=== PATIENT | male | born 1985 | race Caucasian/White ===

== ENCOUNTER 2019-03-03 18:00 | Emergency (ER) | payer BC ==
[2019-03-03] MEDS ORDERED: Ondansetron 4 MG/2 ML SDV IVPUSH ONE (18:41)
[2019-03-03] MEDS ORDERED: Morphine 4 MG/ML Syringe IVPUSH ONE ×2 (18:41→20:49)
[2019-03-03] MEDS ORDERED: Sodium Chloride 0.9% 1,000 ML IV ONE (18:41)
--- NOTE | 2019-03-03 18:45 | EDM.PDOC ---
ED HPI GENERAL MEDICAL PROBLEM - General Chief Complaint: General Stated Complaint: LANCED Time Seen by Provider: 03/03/19 18:17 Source of Information: Reports: Patient History Limitations: Reports: No Limitations - History of Present Illness INITIAL COMMENTS - FREE TEXT/NARRATIVE: HISTORY AND PHYSICAL: History of present illness: Patient is a 33-year-old male who presents to the emergency room with complaints of an abscess to the perineum. He states he does have a history of abscesses, states "I can usually get to them myself and drain them" - but due to location he was unable to get to the area. Patient denies any fever, chills, headache, change in vision, syncope or near syncope. Denies any chest pain, back pain, shortness of breath or cough. Denies any abdominal pain, nausea, vomiting, diarrhea, constipation or dysuria. Denies any testicular redness, swelling or pain. Denies any rectal pain, pressure or discomfort. Has not noted any blood in urine or stool. Patient has been eating and drinking appropriately. Review of systems: As per history of present illness and below otherwise all systems reviewed and negative. Past medical history: As per history of present illness and as reviewed below otherwise noncontributory. Surgical history: As per history of present illness and as reviewed below otherwise noncontributory. Social history: See social history for further information Family history: As per history of present illness and as reviewed below otherwise noncontributory. Physical exam: General: Well-developed and well-nourished 33-year-old male. Alert and oriented. Nontoxic appearing and in no acute distress. HEENT: Atraumatic, normocephalic, pupils equal and reactive bilaterally, negative for conjunctival pallor or scleral icterus, mucous membranes moist, TMs normal bilaterally, throat clear, neck supple, nontender, trachea midline. No drooling or trismus noted. No meningeal signs. No hot potato voice noted. Lungs: Clear to auscultation, breath sounds equal bilaterally, chest nontender. Heart: S1S2, regular rate and rhythm without overt murmur Abdomen: Soft, nondistended, nontender. Negative for masses or hepatosplenomegaly. Negative for costovertebral tenderness. Pelvis: Stable nontender. Genitourinary: Deferred. Rectal: This was done with consent and a facilities administrator at the bedside. See skin for details. Skin: Patient has a localized area to the perineum below the scrotum which is approximately the size of a nickel. This area is erythematous firm but fluctuant center. No surrounding erythema. This does not appear to track into the rectum. Otherwise skin is intact, warm, dry. No lesions or rashes noted. Extremities: Atraumatic, moves all extremities per self with difficulty or deficits, negative for cords or calf pain. Neurovascular unremarkable. Neuro: Awake, alert, oriented. Cranial nerves II through XII unremarkable. Cerebellum unremarkable. Motor and sensory unremarkable throughout. Exam nonfocal. Notes: CT shows no localized fluid collection. No acute inflammatory process within the abdomen or pelvis. Lab work is unremarkable. It did share this information with the patient. He states he still would like to attempt the I&D. 1% lidocaine was used to anesthetize the area. An 11 blade was used to puncture the site. Moderate amount of purulent drainage was expressed from the area. Patient states he feels much relief. We discussed the need for follow-up with the general surgeon for reevaluation and care. We'll place him Bactrim DS and give him [employer] for pain relief. Supportive care measures were reviewed and discussed. Voices understanding and is agreeable to plan of care. Denies any further questions or concerns at this time. Diagnostics: CBC, CMP, CT abdomen and pelvis Therapeutics: IV fluids, Zofran, Morphine Prescription: Bactrim DS [employer] (#20) Impression: Abscess Plan: 1. Apply gentle heat to the area. Warm sits baths as we discussed. 2. Take your medications as directed. The [employer] and cause drowsiness a do not take it will driving to be functioning outside of the house. 3. Please follow-up with the general surgeon as we discussed. Return to the ED as needed and as discussed. Definitive disposition and diagnosis as appropriate pending reevaluation and review of above. анна-anal Pain Score (Numeric/FACES): 9 - Related Data Allergies Allergy/AdvReac Type Severity Reaction Status Date / Time No Known Allergies Allergy Verified 01/08/15 10:41 Home Meds: Home Meds . [No Known Home Meds] 01/08/15 [History] ED ROS GENERAL - Review of Systems Review Of Systems: ROS reveals no pertinent complaints other than HPI. ED EXAM, GENERAL - Physical Exam Exam: See Below (See dictation) Course - Vital Signs Last Recorded V/S: Last Vital Signs Temp 97.5 F 03/03/19 18:30 Pulse 87 03/03/19 21:15 Resp 18 03/03/19 21:15 BP 150/100 H 03/03/19 21:15 Pulse Ox 94 L 03/03/19 21:15 - Orders/Labs/Meds Orders: Active Orders 24 hr Category Date Time Status CULTURE WOUND [RM] Stat Lab 03/03/19 21:10 Ordered Labs: Laboratory Tests 03/03/19 03/03/19 Range/Units 18:57 18:57 WBC 10.37 (4.0-11.0) K/uL RBC 4.86 (4.50-5.90) M/uL Hgb 15.5 (13.0-17.0) g/dL Hct 45.5 (38.0-50.0) % MCV 93.6 (80.0-98.0) fL MCH 31.9 (27.0-32.0) pg MCHC 34.1 (31.0-37.0) g/dL RDW Std Deviation 46.6 (28.0-62.0) fl RDW Coeff of [place] 14 (11.0-15.0) % Plt Count 258 (150-400) K/uL MPV 9.30 (7.40-12.00) fL Neut % (Auto) 57.0 (48.0-80.0) % Lymph % (Auto) 34.3 (16.0-40.0) % [place] % (Auto) 6.3 (0.0-15.0) % Eos % (Auto) 2.0 (0.0-7.0) % Baso % (Auto) 0.4 (0.0-1.5) % Neut # (Auto) 5.9 H (1.4-5.7) K/uL Lymph # (Auto) 3.6 H (0.6-2.4) K/uL [place] # (Auto) 0.7 (0.0-0.8) K/uL Eos # (Auto) 0.2 (0.0-0.7) K/uL Baso # (Auto) 0.0 (0.0-0.1) K/uL Nucleated RBC % 0.0 /100WBC Nucleated RBCs # 0 K/uL Sodium 142 (136-148) mmol/L Potassium 4.3 (3.5-5.1) mmol/L Chloride 106 (98-107) mmol/L Carbon Dioxide 23.7 (21.0-32.0) mmol/L BUN 11 (7.0-18.0) mg/dL Creatinine 1.0 (0.8-1.3) mg/dL Est Cr Clr Drug Dosing 122.16 mL/min Estimated GFR (MDRD) > 60.0 ml/min Glucose 105 (74-106) mg/dL Calcium 9.3 (8.5-10.1) mg/dL Total Bilirubin 0.4 (0.2-1.0) mg/dL AST 21 (15-37) IU/L ALT 54 (14-63) IU/L Alkaline Phosphatase 85 (46-116) U/L Total Protein 7.7 (6.4-8.2) g/dL Albumin 3.8 (3.4-5.0) g/dL Globulin 3.9 (2.6-4.0) g/dL Albumin/Globulin Ratio 1.0 (0.9-1.6) Meds: Medications Discontinued Medications Generic Name Dose Route Start Last Admin Trade Name Freq PRN Reason Stop Dose Admin Sodium Chloride 1,000 mls @ 999 mls/hr 03/03/19 18:41 03/03/19 18:56 Normal Saline IV 03/03/19 19:41 999 mls/hr STAT ONE Administration Iopamidol 100 ml 03/03/19 20:03 03/03/19 20:04 Isovue Multipack-370 (76%) IVPUSH 03/03/19 20:04 100 ml ONETIME ONE Administration Lidocaine HCl 5 ml 03/03/19 19:33 03/03/19 21:01 Xylocaine-Mpf 1% INJECT 03/03/19 19:34 5 ml ONETIME ONE Administration Morphine Sulfate 4 mg 03/03/19 18:41 03/03/19 18:59 Morphine IVPUSH 03/03/19 18:42 4 mg ONETIME ONE Administration Morphine Sulfate 4 mg 03/03/19 20:49 03/03/19 21:04 Morphine IVPUSH 03/03/19 20:50 4 mg ONETIME ONE Administration Ondansetron HCl 4 mg 04/22/19 18:41 03/03/19 18:58 Zofran IVPUSH 03/03/19 18:42 4 mg ONETIME ONE Administration Departure - Departure Time of Disposition: 20:58 Disposition: Home, Self-Care 01 Clinical Impression: Abscess - Discharge Information Instructions: Skin Abscess, [id number] Referrals: PCP,None [Primary Care Provider] - Forms: ED Department Discharge Additional Instructions: The following information is given to patients seen in the emergency department who are being discharged to home. This information is to outline your options for follow-up care. We provide all patients seen in our emergency department with a follow-up referral. The need for follow-up, as well as the timing and circumstances, are variable depending upon the specifics of your emergency department visit. If you don't have a primary care physician on staff, we will provide you with a referral. We always advise you to contact your personal physician following an emergency department visit to inform them of the circumstance of the visit and for follow-up with them and/or the need for any referrals to a consulting specialist. The emergency department will also refer you to a specialist when appropriate. This referral assures that you have the opportunity for follow-up care with a specialist. All of these measure are taken in an effort to provide you with optimal care, which includes your follow-up. Under all circumstances we always encourage you to contact your private physician who remains a resource for coordinating your care. When calling for follow-up care, please make the office aware that this follow-up is from your recent emergency room visit. If for any reason you are refused follow-up, please contact the [facility] Emergency Department at and asked to speak to the emergency department charge nurse. [facility] Specialty Care - General Surgery Professional Building [address] [place] [address], [address] [place] [address] 1. Apply gentle heat to the area. Warm sits baths as we discussed. 2. Take your medications as directed. The [employer] and cause drowsiness a do not take it will driving to be functioning outside of the house. 3. Please follow-up with the general surgeon as we discussed. Return to the ED as needed and as discussed. - My Orders Last 24 Hours: My Active Orders 03/03/19 21:10 CULTURE WOUND [RM] Stat - Assessment/Plan Last 24 Hours: My Active Orders 03/03/19 21:10 CULTURE WOUND [RM] Stat
[2019-03-03 19:24] LABS: CHLORIDE,CL 106 mmol/L (98-107); SODIUM,NA 142 mmol/L (136-148)
[2019-03-03] MEDS ORDERED: Iopamidol 755 MG/ML 500 ML Multipack Bottle IVPUSH ONE (20:03)
--- NOTE | 2019-03-03 20:37 | CT ---
HISTORY: Perianal abscess. TECHNIQUE: Intravenous contrast enhanced CT of the abdomen and pelvis. 100 mL of Isovue-370 intravenous contrast administered. COMPARISON: No prior. FINDINGS: There is no focal liver parenchymal abnormality. Prior cholecystectomy. Biliary system is within normal limits for postcholecystectomy state. Spleen and adrenal glands are normal. Symmetric nephrograms. No renal mass or hydronephrosis. Urinary bladder is not evaluated by CT but appears grossly unremarkable. - Stomach and GE junction are not optimally distended and not optimally evaluated by CT but appear grossly unremarkable. There is no small bowel obstruction. No appendicitis. No diverticulitis or definite colitis. No perirectal or perianal collection seen. No deep pelvic or abdominal fluid collection. No adenopathy. No aortic aneurysm. Small fat containing umbilical region hernia is present. - There is bilateral femoral head avascular necrosis without collapse of the articular surfaces. - No consolidation within the lung bases nor pleural effusion. IMPRESSION: 1. No localized fluid collection seen. 2. No acute inflammatory process seen within the abdomen or pelvis. 3. Changes of prior cholecystectomy. Biliary system within normal limits for postcholecystectomy state. 4. Small fat containing umbilical hernia. 5. Bilateral femoral head avascular necrosis. No collapse of the articular surfaces. Dictated by Chad Alfaro MD @ 03/03/2019 8:35:35 PM Please note that all CT scans at this facility use dose modulation, iterative reconstruction, and/or weight-based dosing when appropriate to reduce radiation dose to as low as reasonably achievable. Dictated by: Chad Alfaro MD @ 03/03/2019 20:35:41 (Electronically Signed)
[2019-03-03 21:19] VITALS: BP 150/100
== END 2019-03-03 21:15 | disposition home or self-care (01) ==
LOC: MW.ED 18:00
DX: L02.215 Cutaneous abscess of perineum (principal)
CPT/HCPCS: 10060; 74177; 80053; 85025; 87070; 96361; 96374; 96375; 96376; 99284; J2001; J2270; J2405; J7040; Q9967

== ENCOUNTER 2019-04-22 08:53 | Emergency (ER) | payer BC ==
--- NOTE | 2019-04-22 09:17 | EDM.PDOC ---
ED HPI GENERAL MEDICAL PROBLEM - General Chief Complaint: Skin Complaint Stated Complaint: ABCESS Time Seen by Provider: 04/22/19 08:59 Source of Information: Reports: Patient History Limitations: Reports: No Limitations - History of Present Illness INITIAL COMMENTS - FREE TEXT/NARRATIVE: History of present illness: []Patient has had a perineal abscess 2 months ago that was drained in the ER and feels that it has returned. He came in earlier this time has no fevers, pain with bowel movements or redness/tenderness to scrotum. Review of systems: As per history of present illness and below otherwise all systems reviewed and negative. Past medical history: As per history of present illness and as reviewed below otherwise noncontributory. Surgical history: As per history of present illness and as reviewed below otherwise noncontributory. Social history: No reported history of drug or alcohol abuse. Family history: As per history of present illness and as reviewed below otherwise noncontributory. Physical exam: General: Well developed, well nourished in NAD HEENT: Atraumatic, normocephalic, pupils reactive, negative for conjunctival pallor or scleral icterus, mucous membranes moist, throat clear, neck supple, nontender, trachea midline. Lungs: Clear to auscultation, breath sounds equal bilaterally, chest nontender. Heart: S1S2, regular, negative for clicks, rubs, or JVD. Abdomen: NABS, Soft, nondistended, nontender. Negative for masses or hepatosplenomegaly. Negative for costovertebral tenderness. Pelvis: Stable nontender. Genitourinary: Perineal area with a healed scar, tenderness to palpation with small pea-sized area of fluctuant, there is no erythema, swelling or edema to the area or surrounding tissue. Rectal: Deferred. Extremities: Atraumatic, negative for cords or calf pain. Neurovascular unremarkable. Neuro: Awake, alert, oriented. Cranial nerves II through XII unremarkable. Cerebellum unremarkable. Motor and sensory unremarkable throughout. Exam nonfocal. Skin:warm and dry Diagnostics: None Therapeutics: Dilaudid IM in the ED ED Course: Consults Dr. Guillaume who evaluated him in the ER will see him in clinic tomorrow Impression: Perineal abscess Prescriptions: Tramadol, Flagyl Plan: She will be discharged on Flagyl and tramadol, follow-up with Dr. Guillaume in clinic tomorrow Definitive disposition and diagnosis as appropriate pending reevaluation and review of above. Perineum Pain Score (Numeric/FACES): 8 - Related Data Allergies Allergy/AdvReac Type Severity Reaction Status Date / Time No Known Allergies Allergy Verified 04/22/19 09:02 Home Meds: Home Meds metroNIDAZOLE [Flagyl] 500 mg PO Q8H #30 tab 04/22/19 [Rx] traMADol HCl [Tramadol HCl] 50 mg PO Q6H PRN #20 tablet 04/22/19 [Rx] Past Medical History - Past Health History Medical/Surgical History: Denies Medical/Surgical History HEENT History: Reports: None Cardiovascular History: Reports: Hypertension Respiratory History: Reports: None Gastrointestinal History: Reports: None Genitourinary History: Reports: None Musculoskeletal History: Reports: None Neurological History: Reports: None Psychiatric History: Reports: None Endocrine/Metabolic History: Reports: None Hematologic History: Reports: None Immunologic History: Reports: None Oncologic (Cancer) History: Reports: None Dermatologic History: Reports: None - Infectious Disease History Infectious Disease History: Reports: MRSA - Past Surgical History Head Surgeries/Procedures: Reports: None HEENT Surgical History: Reports: None Cardiovascular Surgical History: Reports: None Respiratory Surgical History: Reports: None GI Surgical History: Reports: Cholecystectomy, Other (See Below) Other GI Surgeries/Procedures: fissure (rectal) Male Surgical History: Reports: None Endocrine Surgical History: Reports: None Neurological Surgical History: Reports: None Musculoskeletal Surgical History: Reports: None Oncologic Surgical History: Reports: None Dermatological Surgical History: Reports: None Social & Family History - Family History Family Medical History: Noncontributory - Tobacco Use Smoking Status *Q: Current Every Day Smoker Years of Tobacco use: 20 Packs/Tins Daily: 1 - Caffeine Use Caffeine Use: Reports: None - Recreational Drug Use Recreational Drug Use: Yes Recreational Drug Type: Reports: Marijuana/Hashish ED ROS GENERAL - Review of Systems Review Of Systems: ROS reveals no pertinent complaints other than HPI. ED EXAM, SKIN/RASH Exam: See Below (See history of present illness) Course - Vital Signs Last Recorded V/S: Last Vital Signs Temp 96.1 F 04/22/19 09:00 Pulse 75 04/22/19 09:53 Resp 18 04/22/19 09:00 BP 156/101 H 04/22/19 09:53 Pulse Ox 97 06/11/19 09:53 - Orders/Labs/Meds Meds: Medications Discontinued Medications Generic Name Dose Route Start Last Admin Trade Name Freq PRN Reason Stop Dose Admin Hydromorphone HCl 1 mg 04/22/19 09:18 04/22/19 09:28 Dilaudid IM 04/22/19 09:19 1 mg ONETIME ONE Administration Departure - Departure Time of Disposition: 09:54 Disposition: Home, Self-Care 01 Condition: Good Clinical Impression: Perineal abscess Clinical Impression: (Ruled Out): Perineal abscess, superficial - Discharge Information *PRESCRIPTION DRUG MONITORING PROGRAM REVIEWED*: No *COPY OF PRESCRIPTION DRUG MONITORING REPORT IN PATIENT FABRICIO: No Prescriptions: metroNIDAZOLE [Flagyl] 500 mg PO Q8H #30 tab traMADol HCl [Tramadol HCl] 50 mg PO Q6H PRN #20 tablet PRN Reason: Pain Referrals: PCP,None [Primary Care Provider] - Forms: ED Department Discharge Additional Instructions: The following information is given to patients seen in the emergency department who are being discharged to home. This information is to outline your options for follow-up care. We provide all patients seen in our emergency department with a follow-up referral. The need for follow-up, as well as the timing and circumstances, are variable depending upon the specifics of your emergency department visit. If you don't have a primary care physician on staff, we will provide you with a referral. We always advise you to contact your personal physician following an emergency department visit to inform them of the circumstance of the visit and for follow-up with them and/or the need for any referrals to a consulting specialist. The emergency department will also refer you to a specialist when appropriate. This referral assures that you have the opportunity for follow-up care with a specialist. All of these measure are taken in an effort to provide you with optimal care, which includes your follow-up. Under all circumstances we always encourage you to contact your private physician who remains a resource for coordinating your care. When calling for follow-up care, please make the office aware that this follow-up is from your recent emergency room visit. If for any reason you are refused follow-up, please contact the [facility] Emergency Department at and asked to speak to the emergency department charge nurse. Take meds as directed, follow up with your primary care physician, return to ER if symptoms worsen or change. [facility] Specialty Care - General Surgery Professional Building [address] [place] [address], [address] [place] [address]
[2019-04-22] MEDS ORDERED: HYDROmorphone 1 MG/ML Syringe IM ONE (09:18)
[2019-04-22 09:54] VITALS: BP 156/101
--- NOTE | 2019-04-22 10:10 | PCM.CONS ---
H&P History of Present Illness - General Date of Service: 04/22/19 Admit Problem/Dx: Perianal pain Source of Information: Patient History Limitations: Reports: No Limitations - History of Present Illness Initial Comments - Free Text/Narative: Patient is a 33 year old male with a history of perianal abscesses and a previous fistula. He had an anterior perianal abscess a couple months ago. He came to the ER and had it drained bedside. He healed up with no complications. Two days ago he felt some pain and pressure in the same area. It is now warm and slightly raised. He denies fevers chills or change in his bowel or bladder habits. He has had a colonoscopy which was normal. Perineum Pain Score (Numeric/FACES): 8 - Related Data Allergies/Adverse Reactions: Allergies Allergy/AdvReac Type Severity Reaction Status Date / Time No Known Allergies Allergy Verified 04/22/19 09:02 Home Medications: Home Meds metroNIDAZOLE [Flagyl] 500 mg PO Q8H #30 tab 04/22/19 [Rx] traMADol HCl [Tramadol HCl] 50 mg PO Q6H PRN #20 tablet 04/22/19 [Rx] Past Medical History - Past Health History Medical/Surgical History: Denies Medical/Surgical History HEENT History: Reports: None Cardiovascular History: Reports: Hypertension Respiratory History: Reports: None Gastrointestinal History: Reports: None Genitourinary History: Reports: None Musculoskeletal History: Reports: None Neurological History: Reports: None Psychiatric History: Reports: None Endocrine/Metabolic History: Reports: None Hematologic History: Reports: None Immunologic History: Reports: None Oncologic (Cancer) History: Reports: None Dermatologic History: Reports: None - Infectious Disease History Infectious Disease History: Reports: MRSA - Past Surgical History Head Surgeries/Procedures: Reports: None HEENT Surgical History: Reports: None Cardiovascular Surgical History: Reports: None Respiratory Surgical History: Reports: None GI Surgical History: Reports: Cholecystectomy, Other (See Below) Other GI Surgeries/Procedures: fissure (rectal) Male Surgical History: Reports: None Endocrine Surgical History: Reports: None Neurological Surgical History: Reports: None Musculoskeletal Surgical History: Reports: None Oncologic Surgical History: Reports: None Dermatological Surgical History: Reports: None Social & Family History - Family History Family Medical History: Noncontributory - Tobacco Use Smoking Status *Q: Current Every Day Smoker Years of Tobacco use: 20 Packs/Tins Daily: 1 - Caffeine Use Caffeine Use: Reports: None - Recreational Drug Use Recreational Drug Use: Yes Recreational Drug Type: Reports: Marijuana/Hashish H&P Review of Systems - Review of Systems: Review Of Systems: ROS reveals no pertinent complaints other than HPI. Exam - Exam Exam: See Below - Vital Signs Vital Signs: Last Vital Signs Temp 35.6 C 04/22/19 09:00 Pulse 75 04/22/19 09:53 Resp 18 04/22/19 09:00 BP 156/101 H 04/22/19 09:53 Pulse Ox 97 04/22/19 09:53 Weight: 136.078 kg - Exam General: Alert, Oriented HEENT: Conjunctiva Clear, Mucosa Moist & [place], Posterior Pharynx Clear Neck: Supple, Trachea Midline Lungs: Normal Respiratory Effort Cardiovascular: Regular Rate GI/Abdominal Exam: Soft, Non-Tender, No Distention, No Mass (Male) Exam: Other (small firm area the size of a pea anterior to the anus. The anoderm otherwise appears normal. Slightly tender to deep palpation. ) Consult PN Assessment/Plan Procedures: Procedures COMPLETE CBC W/AUTO DIFF WBC (03/03/19) COMPREHEN METABOLIC PANEL (03/03/19) CT ABD & PELV W/CONTRAST (03/03/19) CULTURE OTHR SPECIMN AEROBIC (03/03/19) DRAINAGE OF SKIN ABSCESS (03/03/19) ECHO EXAM OF ABDOMEN (11/06/17) EMERGENCY DEPT VISIT (03/03/19) EMERGENCY DEPT VISIT (01/08/15) GLYCOSYLATED HEMOGLOBIN TEST (11/02/17) HELICOBACTER PYLORI ANTIBODY (11/02/17) HYDRATE IV INFUSION ADD-ON (03/03/19) LACTOFERRIN FECAL (QUAL) (11/02/17) LIPID PANEL (11/02/17) ROUTINE VENIPUNCTURE (11/02/17) STOOL CULTR AEROBIC BACT EA (11/02/17) THER/PROPH/DIAG INJ IV PUSH (03/03/19) THER/PROPH/DIAG INJ SC/IM (01/08/15) TX/PRO/DX INJ NEW DRUG ADDON (03/03/19) TX/PRO/DX INJ SAME DRUG STEAM ROLLER OPERATOR (03/03/19) (1) Perineal abscess SNOMED Code(s): 48385790 Code(s): L02.215 - CUTANEOUS ABSCESS OF PERINEUM Problem List Initiated/Reviewed/Updated: Yes Plan: I gave the patient the option of antibiotics or incision and drainage in the OR. Given how small it is, he would like to try antibiotics with a re-check in clinic tomorrow morning. If his pain should get worse or he develops systemic signs of infection he understands that he needs to return to the ER for follow up. He may still require drainage, but will monitor him closely as an outpatient.
== END 2019-04-22 10:10 | disposition home or self-care (01) ==
LOC: MW.ED 08:53
DX: L02.215 Cutaneous abscess of perineum (principal); I10 Essential (primary) hypertension; F17.210 Nicotine dependence, cigarettes, uncomplicated; Z90.49 Acquired absence of other specified parts of digestive tract
CPT/HCPCS: 96372; 99283; J1170

== ENCOUNTER 2019-04-23 08:58 | Day surgery (SDC) | payer BC ==
[2019-04-23] MEDS ORDERED: Lactated Ringers 1,000 ML IV SCH (09:45)
--- NOTE | 2019-04-23 09:47 | PCM.PREANE ---
Preanesthetic Assessment - Anesthesia/Transfusion/Family Hx Anesthesia History: Prior Anesthesia Without Reaction Family History of Anesthesia Reaction: No Transfusion History: Unknown Intubation History: Unknown - Review of Systems General: No Symptoms Pulmonary: No Symptoms Cardiovascular: No Symptoms Gastrointestinal: No Symptoms, Other (rectal abscess) Neurological: No Symptoms Other: Reports: None - Physical Assessment O2 Sat by Pulse Oximetry: 94 Respiratory Rate: 18 Vital Signs: Last Vital Signs Temp 36.5 C 04/23/19 09:20 Pulse 89 04/23/19 09:20 Resp 18 04/23/19 09:20 BP 137/76 04/23/19 09:20 Pulse Ox 94 L 04/23/19 09:20 ASA Class: 2 Mental Status: Alert & Oriented x3 Airway Class: Mallampati = 2 Dentition: Reports: Normal Dentition Thyro-Mental Finger Breadths: 3 Mouth Opening Finger Breadths: 3 ROM/Head Extension: Full Lungs: Clear to Auscultation, Normal Respiratory Effort Cardiovascular: Regular Rate, Regular Rhythm - Allergies Allergies/Adverse Reactions: Allergies Allergy/AdvReac Type Severity Reaction Status Date / Time No Known Allergies Allergy Verified 04/22/19 09:02 - Blood Blood Available: No - Anesthesia Plan Pre-Op Medication Ordered: None - Acknowledgements Anesthesia Type Planned: General Anesthesia Pt an Appropriate Candidate for the Planned Anesthesia: Yes Alternatives and Risks of Anesthesia Discussed w Pt/Guardian: Yes Pt/Guardian Understands and Agrees with Anesthesia Plan: Yes PreAnesthesia Questionnaire - Past Health History Medical/Surgical History: Denies Medical/Surgical History HEENT History: Reports: None Cardiovascular History: Reports: Hypertension Respiratory History: Reports: None Gastrointestinal History: Reports: None Genitourinary History: Reports: None Musculoskeletal History: Reports: None Neurological History: Reports: None Psychiatric History: Reports: Anxiety, Depression Endocrine/Metabolic History: Reports: Obesity/BMI 30+ Hematologic History: Reports: None Immunologic History: Reports: None Oncologic (Cancer) History: Reports: None Dermatologic History: Reports: None - Infectious Disease History Infectious Disease History: Reports: MRSA - Past Surgical History Head Surgeries/Procedures: Reports: None HEENT Surgical History: Reports: None Cardiovascular Surgical History: Reports: None Respiratory Surgical History: Reports: None GI Surgical History: Reports: Cholecystectomy, Other (See Below) Other GI Surgeries/Procedures: fistulotomy (rectal) Male Surgical History: Reports: None Endocrine Surgical History: Reports: None Neurological Surgical History: Reports: None Musculoskeletal Surgical History: Reports: None Oncologic Surgical History: Reports: None Dermatological Surgical History: Reports: None - SUBSTANCE USE Smoking Status *Q: Current Every Day Smoker (1 ppd) - HOME MEDS Home Medications: Home Meds metroNIDAZOLE [Flagyl] 500 mg PO Q8H #30 tab 04/22/19 [Rx] traMADol HCl [Tramadol HCl] 50 mg PO Q6H PRN #20 tablet 04/22/19 [Rx] - CURRENT (IN HOUSE) MEDS Current Meds: Current Medications Lactated Ringer's (Ringers, Lactated) 1,000 mls @ 100 mls/hr IV ASDIRECTED JEAN-PIERRE
[2019-04-23] MEDS: fentaNYL 100 MCG/2 ML SDV IVPUSH PRN ×2 (10:00→10:07)
[2019-04-23] MEDS ORDERED: Sodium Chloride 0.9% 10 ML SDV IV PRN (10:11)
[2019-04-23] MEDS ORDERED: Sodium Chloride 0.9% 10 ML Syringe FLUSH PRN (10:11)
[2019-04-23] MEDS ORDERED: Sodium Chloride 0.9% 2.5 ML Syringe FLUSH PRN (10:11)
[2019-04-23] MEDS ORDERED: cefOXitin 2 GM in Premix Bag 1 BAG IV ONE (10:11)
[2019-04-23] MEDS ORDERED: Ondansetron 4 MG/2 ML SDV ONE (11:18)
[2019-04-23] MEDS ORDERED: Propofol 200 MG/20 ML SDV ONE (11:18)
[2019-04-23] MEDS ORDERED: Glycopyrrolate 0.2 MG/ML SDV ONE (11:19)
[2019-04-23] MEDS ORDERED: Ketorolac 30 MG/ML SDV ONE (11:19)
[2019-04-23] MEDS ORDERED: fentaNYL 100 MCG/2 ML SDV ONE ×2 (11:19→12:10)
[2019-04-23] MEDS ORDERED: Midazolam 1 MG/ML 2 ML SDV ONE (11:19)
[2019-04-23] MEDS ORDERED: Bupivacaine 0.5% 30 ML SDV ONE (11:20)
[2019-04-23] MEDS ORDERED: HYDROmorphone 2 MG/ML Syringe ONE (12:10)
--- NOTE | 2019-04-23 12:43 | PCM.OPNOTE ---
- General Post-Op/Procedure Note Date of Surgery/Procedure: 04/23/19 Operative Procedure(s): Incision and drainage perianal abscess Findings: 1 x 1 x 1 cm abscess between anterior anoderm and scrotum . No evidence of a fistula. Grade 3 hemorrhoids Pre Op Diagnosis: Perianal abscess Post-Op Diagnosis: Perianal abscess, Grade 3 hemorrhoids Anesthesia Technique: General LMA Primary Surgeon: Nilsa Guillaume Fluid Replacement, Intraop: 700 Condition: Good
--- NOTE | 2019-04-23 13:08 | PCM.POSTAN ---
POST ANESTHESIA ASSESSMENT - MENTAL STATUS Mental Status: Alert - VITAL SIGNS Pulse Rate: 69 SaO2: 94 Resp Rate: 16 Blood Pressure: 131/81 Temperature: 36.4 C - RESPIRATORY Respiratory Status: Respiratory Rate WNL - CARDIOVASCULAR CV Status: Pulse Rate WNL - GASTROINTESTINAL GI Status: No Symptoms - PAIN Pain Score: 0 Free Text/Narrative:: Comfortable - POST OP HYDRATION Hydration Status: Adequate & Stable (Doing well. Ready for phase 2.)
[2019-04-23 13:57] VITALS: BP 131/81
--- NOTE | 2019-04-23 13:57 | PCM48HPAN ---
Post Anesthesia Note - EVALUATION WITHIN 48HRS OF ANESTHETIC Vital Signs in Normal Range: Yes Patient Participated in Evaluation: Yes Respiratory Function Stable: Yes Airway Patent: Yes Cardiovascular Function Stable: Yes Hydration Status Stable: Yes Pain Control Satisfactory: Yes Nausea and Vomiting Control Satisfactory: Yes Mental Status Recovered: Yes Pulse Rate: 69 SaO2: 95 Resp Rate: 16 Temperature: 36.4 C Blood Pressure: 131/81 - COMMENTS/OBSERVATIONS Free Text/Narrative:: Doing well. Ready for discharge.
--- NOTE | 2019-04-23 18:45 | OR ---
SURGEON: NILSA GUILLAUME MD DATE OF PROCEDURE: 04/23/2019 PREOPERATIVE DIAGNOSIS: Perianal abscess. POSTOPERATIVE DIAGNOSES: 1. Perianal abscess. 2. Grade 3 hemorrhoids. PROCEDURE PERFORMED: Incision and drainage of perianal abscess. PRIMARY SURGEON: Nilsa Guillaume MD. ANESTHESIA: General LMA. FLUID: 700 mL crystalloid. ESTIMATED BLOOD LOSS: 5 mL. FINDINGS: 1 x 1 x 1 cm abscess between the anterior anoderm and the scrotum. No evidence of a perianal fistula. Grade 3 hemorrhoids COMPLICATIONS: None. INDICATIONS: The patient is a 33-year-old male with a history of previous perianal abscesses and MRSA abscesses, who presents with an abscess between the scrotum and the anus. He was treated with antibiotics, and in the last 24 hours, he has noted the area to become more reddened, painful, and fluctuant. He was seen in clinic and the decision was made to proceed with an incision and drainage of this area under anesthesia. I explained the procedure, expected perioperative course, and risks including bleeding, infection, or damage to surrounding structures. He verbalized understanding and wishes to proceed. PROCEDURE IN DETAIL: The patient was brought to the OR and placed on the OR table in supine position. A time-out was completed verifying the patient's name, age, date of , allergies, and procedure to be performed. General LMA anesthesia was induced. The patient was then placed in lithotomy position. The area underneath the scrotum and the anus were prepped and draped in usual standard fashion. I palpated the area of concern. This was directly over the midline and I could feel fluctuance. A 15 blade was used to make a 1 cm incision over the area of maximum fluctuance. I immediately obtained a large amount of white-appearing pus. This was cultured for both anaerobic and aerobic organisms as well as Gram stain. The wound was then explored with a hemostat. It tracked anteriorly toward the right side. A cruciate incision was made including my initial incision. The corners of this were then removed with cautery leaving a 1 x 1 cm opening over the abscess cavity. I measured the area and it measured about 1 cm deep. I then performed a digital rectal exam. This exam revealed grade 3 hemorrhoids. A well-lubricated bivalve proctoscope was inserted into the rectum and I inspected the anal canal. There was no evidence of perianal fistula. I then turned my attention back to the wound. Electrocautery was used to achieve hemostasis. I anesthetized the area around the wound and in it with 0.5% Marcaine plain. My gloves were changed and I packed the wound with half-inch iodoform gauze that had been moistened with normal saline. A 4 x 4 fluffs were placed over the area as well as an ABD pad. This was all secured in place using mesh underwear. The patient was taken out of lithotomy position, extubated, and placed back on the OR cart. He was taken to PACU in stable condition. All counts were complete and correct at the end of the case. MAX / LAURIE /[id number] MTDD
== END 2019-04-23 13:43 | disposition home or self-care (01) ==
LOC: MW.SDS 08:58
PROVIDERS: ATTEND Surgery
DX: K61.0 Anal abscess (principal); K64.2 Third degree hemorrhoids; K52.9 Noninfective gastroenteritis and colitis, unspecified; I10 Essential (primary) hypertension; F17.210 Nicotine dependence, cigarettes, uncomplicated; E87.6 Hypokalemia; E78.1 Pure hyperglyceridemia; E66.9 Obesity, unspecified; Z68.37 Body mass index [BMI] 37.0-37.9, adult
CPT/HCPCS: 46050; 87070; 87075; 87205; J0131; J1170; J2250; J2405; J2704; J3010; J3490; J7120; 00902; J1885